=== PATIENT | female | born 2000 | race Caucasian/White ===

== ENCOUNTER 2019-04-17 15:13 | Emergency (ER) | payer BC ==
[~2019-04-17] VITALS: Ht 157.5 cm; Wt 60.7 kg
[~2019-04-17 15:13] MED LIST: PRED20TA PO
[2019-04-17 15:15] VITALS: BP 120/66; PULSE 63; RESP 16; Ht 157.5 cm; Wt 60.7 kg
--- NOTE | 2019-04-17 15:34 | ERD ---
ER Documentation Chief Complaint Chief Complaint intermittent hives w/ eye itching/swelling, worse after dairy HPI 19-year-old female is here because she is been getting hives intermittently since Monday. He thinks is from eating dairy as it began after she ate on Monday. The rashes come and go. She has not taken any medications for this. She has not had any lip or tongue swelling or difficulty breathing. No fever or recent illness. ROS All systems reviewed and are negative except as per history of present illness. Medications Home Meds Active Scripts Prednisone* (Prednisone*) 20 Mg Tab, 60 MG PO DAILY for 5 Days, TAB Prov:GOSIA HILLS PA-C 04/17/19 Allergies Allergies: Coded Allergies: No Known Allergy (Unverified , 04/17/19) PMhx/Soc History of Surgery: Yes (arm surgery) Hx Alcohol Use: No Hx Substance Use: No Hx Tobacco Use: No Smoking Status: Never smoker FmHx Family History: No diabetes Physical Exam Vitals Vital Signs Date Temp Pulse Resp B/P (MAP) Pulse Ox O2 O2 Flow FiO2 Time Delivery Rate 04/17/19 98.6 63 16 120/66 100 15:15 (84) Physical Exam Const: No acute distress Head: Atraumatic Eyes: Normal Conjunctiva ENT: Normal External Ears, Nose and Mouth. Neck: Full range of motion. No meningismus. Resp: Clear to auscultation bilaterally Cardio: Regular rate and rhythm, no murmurs Skin: Scant hives on upper extremities, no lip or tongue swelling Procedures/MDM Patient has allergic reaction. No signs of anaphylaxis. She can take Benadryl at home and given a prescription for short course of prednisone. Patient counseled regarding my diagnostic impression and care plan. Prior to discharge all questions answered. Pt agrees with treatment plan and understands strict return precautions. Pt is instructed to follow up with primary care provider within 24-48 hours. Precautionary instructions provided including instructions to return to the ER if not improving or for any worsening or changing symptoms or concerns. Departure Diagnosis: Primary Impression: Allergic reaction Condition: Stable Patient Instructions: Hives Additional Instructions: Call your primary care doctor TOMORROW for an appointment during the next 1-2 days.See the doctor sooner or return here if your condition worsens before your appointment time. GOSIA HILLS PA-C Apr 17, 2019 15:34
== END 2019-04-17 15:39 | disposition home or self-care (01) ==
LOC: FTE 15:13
DX: L50.0 Allergic urticaria (principal)
CPT/HCPCS: 99283